=== PATIENT | male | born 1980 | race Caucasian/White ===

== ENCOUNTER 2018-12-13 14:26 | Outpatient (CLI) | payer MEDICAID ==
[2018-12-13 17:48] LABS: BASOPHILS % (AUTO) 0.8 %; EOSINOPHILS # (AUTO) 0.1 10^3/uL (0.0-0.7); EOSINOPHILS % (AUTO) 2.6 %; HGB - HEMOGLOBIN 13.9 g/dL (14.0-18.0); LYMPHOCYTES # (AUTO) 1.2 10^3/uL (1.5-3.5); LYMPHOCYTES % (AUTO) 24.2 %; MEAN CORPUSCULAR HEMOGLOBIN 32.2 pg (27.0-31.0); MEAN CORPUSCULAR HGB CONC 33.7 g/dL (32.0-36.0); MEAN CORPUSCULAR VOLUME 95.6 fL (80.0-94.0); MEAN PLATELET VOLUME 9.5 fL (7.4-11.4); MONOCYTES # (AUTO) 0.5 10^3/uL (0.0-1.0); NEUTROPHILS # (AUTO) 3.1 10^3/uL (1.5-6.6); NEUTROPHILS % (AUTO) 62.2 %; PLT - PLATELET COUNT 381 10^3/uL (130-450); RED BLOOD COUNT 4.32 10^6/uL (4.70-6.10); RED CELL DISTRIBUTION WIDTH 11.8 % (12.0-15.0); WHITE BLOOD COUNT 4.9 x10^3/uL (4.8-10.8)
[2018-12-13 18:18] LABS: ALBUMIN 4.4 g/dL (3.2-5.5); ALBUMIN/GLOBULIN RATIO 1.6 (1.0-2.2); ALKALINE PHOSPHATASE 72 IU/L (42-121); ALT ALANINE AMINOTRANSFERASE 44 IU/L (10-60); AST ASPARTATE AMINOTRANSFERASE 56 IU/L (10-42); BILIRUBIN,TOTAL 0.9 mg/dL (0.2-1.0); BUN - BLOOD UREA NITROGEN 9 mg/dL (6-20); CALCIUM 9.5 mg/dL (8.5-10.3); CARBON DIOXIDE - CO2 27 mmol/L (21-32); CHLORIDE 102 mmol/L (101-111); CHOL/HDL RATIO 2.4 (<5.0); CHOLESTEROL 210 mg/dL; CREATININE 0.9 mg/dL (0.6-1.2); GFR - MDRD 93 (>89); GLUCOSE 116 mg/dL (70-100); HDL CHOLESTEROL 86 mg/dL; LDL CHOLESTEROL,CALCULATED 97 mg/dL; LDL/HDL RATIO 1.1 (<3.6); SODIUM 141 mmol/L (135-145); TOTAL PROTEIN 7.2 g/dL (6.7-8.2); VLDL CHOLESTEROL 27 mg/dL
[2018-12-13 18:21] LABS: CRP - C-REACTIVE PROTEIN < 1.0 mg/dL (0-1.0)
[2018-12-16 20:02] LABS: ANA SCREEN NEGATIVE (NEGATIVE)
== END 2018-12-13 14:27 | disposition home or self-care (01) ==
LOC: LAB.S 14:26
PROVIDERS: ATTEND Family Medicine
DX: M25.50 Pain in unspecified joint (principal); R10.9 Unspecified abdominal pain; R53.83 Other fatigue
CPT/HCPCS: 36415; 80053; 80061; 83721; 84443; 85025; 85651; 86038; 86140

== ENCOUNTER 2018-12-21 13:49 | Outpatient (CLI) | payer MEDICAID ==
[2018-12-21 17:46] LABS: AMYLASE 35 U/L (28-100); LIPASE 28 U/L (22-51)
== END 2018-12-21 13:50 | disposition home or self-care (01) ==
LOC: LAB.S 13:49
PROVIDERS: ATTEND Registered Nurse
DX: R10.9 Unspecified abdominal pain (principal)
CPT/HCPCS: 36415; 82150; 83690

== ENCOUNTER 2018-12-29 14:54 | Outpatient (CLI) | payer MEDICAID ==
[2018-12-29] MEDS ORDERED: IOVERSOL 320 100 ML VIAL IVP ONE ×2 (15:20→16:20)
--- NOTE | 2018-12-29 16:38 | CT Report ---
Reason: ANEMIA, FATIGUE, ABD PAIN Procedure Date: 12/29/2018 Accession Number: [id number] Procedure: CT - ABDOMEN W/WO CPT Code: Final Report FULL RESULT: EXAM: CT ABDOMEN WITHOUT AND WITH CONTRAST EXAM DATE: 12/29/2018 04:22 PM. HISTORY: ANEMIA, FATIGUE, ABD PAIN. COMPARISON: None. TECHNIQUE: Routine helical CT imaging was performed through the abdomen before and after administration of IV contrast: OPTI 320 100ML. Enteric contrast: No. Reconstruction: Coronal and sagittal. In accordance with CT protocol optimization, one or more of the following dose reduction techniques were utilized for this exam: automated exposure control, adjustment of mA and/or KV based on patient size, or use of iterative reconstructive technique. FINDINGS: Lung Bases: Unremarkable. Liver: Normal. No masses. Gallbladder/Bile Ducts: Unremarkable. Spleen: Normal. Pancreas: Normal. No masses or ductal obstruction. Adrenal Glands: Normal. Kidneys: Normal. No masses or hydronephrosis. Peritoneal Cavity/Bowel: Normal. No free fluid, free air or adenopathy. No masses or acute inflammatory process. The appendix is well visualized and normal. Vasculature: No aneurysms or other significant abnormality. Bones: No significant abnormality. Other: None. IMPRESSION: No significant abdominal pathology. [facility]
--- NOTE | 2018-12-30 08:43 | Ultrasound Report ---
Reason: ANEMIA, FATIGUE, ABD PAIN Procedure Date: 12/29/2018 Accession Number: [id number] / [id number] Procedure: US - Abdomen Complete CPT Code: Final Report FULL RESULT: EXAM: ABDOMEN ULTRASOUND EXAM DATE: 12/29/2018 04:05 PM. CLINICAL HISTORY: Anemia, fatigue, abdominal pain. COMPARISON: ABDOMEN W/WO 12/29/2018 4:14 PM. TECHNIQUE: Real-time scanning was performed with static images obtained. FINDINGS: Liver: Small 0.7 x 0.6 x 0.7 cm right liver hyperechoic lesion. No internal vascularity. No intrahepatic bile duct dilation. Liver parenchyma is mildly hyperechoic.16.9 cm. Main portal vein flow: Hepatopetal. Gallbladder: Normal. No stones, wall thickening, or sonographic Juan's sign. Biliary System: Common bile duct measures 2 mm. No intrahepatic or extrahepatic ductal dilatation. Pancreas: Mildly prominent lobular configuration of the pancreatic head. No associated pancreatic mass is noted on the CT performed on the same day. This region measures approximately 1.6 x 1.5 x 1.4 cm. No pancreatic ductal dilation or atrophy or calcifications. No peripancreatic collection. Kidneys: Right: 10.9 cm longitudinally. 0.3 cm echogenic nonshadowing focus in the anterior right kidney. No right renal mass or hydronephrosis. Left: 11.2 cm longitudinally. Normal. No contour-deforming mass, stones, or hydronephrosis. Spleen: 8 x 3.3 x 7.1 cm. Normal in size and echotexture. Aorta and Inferior Vena Cava: Unremarkable. Other: None. IMPRESSION: 1. 0.7 cm avascular right liver hyperechoic lesion. Incidental homogeneous hyperechoic liver lesions discovered in patients without known malignancy or liver disease are almost always hepatic hemangiomas. Elisa Romo., Emma Rosas., Ez, SJeanne A., Jaskaran, C. O. 2. Normal gallbladder and common bile duct. 3. Possible 0.3 cm right renal stone. No mass or hydronephrosis. [facility]
== END 2018-12-29 14:55 | disposition home or self-care (01) ==
LOC: DI 14:54
PROVIDERS: ATTEND Registered Nurse
DX: K76.9 Liver disease, unspecified (principal); R53.83 Other fatigue; D64.9 Anemia, unspecified; R10.9 Unspecified abdominal pain
CPT/HCPCS: 74170; 76700; Q9967

== ENCOUNTER 2019-01-31 08:00 | Outpatient (CLI) | payer MEDICAID | END 2019-01-31 23:59 | disposition home or self-care (01) | LOC: LAB.R 08:00 | PROVIDERS: ATTEND Registered Nurse | DX: J02.9 Acute pharyngitis, unspecified (principal) | CPT/HCPCS: 87070 ==

== ENCOUNTER 2019-12-28 09:50 | Outpatient (CLI) | payer MEDICAID, OTHER ==
--- NOTE | 2019-12-28 12:37 | XRAY Report ---
PROCEDURE: Knee 2 View LT INDICATIONS: JOINT EFFUSION, LEFT KNEE TECHNIQUE: 2 views of the left knee(s) were acquired. COMPARISON: None. FINDINGS: Bones: No acute fractures or dislocations. Minimal patellofemoral degenerative change. No suspiciou s bony lesions. Soft tissues: Very small suprapatellar joint effusion. No suspicious soft tissue calcifications. IMPRESSION: Left knee without acute osseous abnormalities. Minimal patellofemoral osteoarthritic changes. There is small joint effusion. Reviewed by: Frantz Vee MD on 12/28/2019 12:35 PM PDT Approved by: Frantz Vee MD on 12/28/2019 12:35 PM PDT Station ID: [id number]
== END 2019-12-28 09:51 | disposition home or self-care (01) ==
LOC: DI.S 09:50
PROVIDERS: ATTEND Registered Nurse
DX: M25.462 Effusion, left knee (principal); M17.12 Unilateral primary osteoarthritis, left knee

== ENCOUNTER 2021-09-08 11:31 | Outpatient (CLI) | payer MEDICAID | END 2021-09-08 11:32 | disposition EMS.NT | LOC: EMS 11:31 | DX: F41.9 Anxiety disorder, unspecified (principal) ==

== ENCOUNTER 2022-12-29 14:32 | Outpatient (CLI) | payer MEDICAID ==
--- NOTE | 2022-12-29 16:54 | XRAY Report ---
PROCEDURE: Ribs w/PA Chest RT INDICATIONS: RIGHT SIDED RIB PAIN TECHNIQUE: 3 views of the right ribs were acquired, along with a single view chest. COMPARISON: None. FINDINGS: Surgical changes and devices: None. Bones and chest wall: No fractures or dislocations. No suspicious bony lesions. Overlying soft tis sues appear unremarkable. Lungs and pleura: No pleural effusions or pneumothorax. Lungs appear clear. Mediastinum: Mediastinal contours appear normal. Heart size is normal. IMPRESSION: No acute fracture. No osseous lesion. If symptoms and/or clinical suspicion for pathology continue, f urther assessment with repeat plain films, or advanced imaging (e.g., CT, MRI, or bone scan) is recom mended for further assessment. Reviewed by: Laura Win MD on 12/29/2022 4:53 PM PDT Approved by: Laura Win MD on 12/29/2022 4:53 PM PDT Station ID: [id number]
== END 2022-12-29 23:59 | disposition home or self-care (01) ==
LOC: DI.S 14:32
PROVIDERS: ATTEND Physician Assistant
DX: R07.81 Pleurodynia (principal)